=== PATIENT | female | born 1960 | race Two or more races ===

== ENCOUNTER 2020-07-19 05:36 | Emergency (ER) | payer OTHER ==
[~2020-07-19] VITALS: Ht 157.5 cm; Wt 72.1 kg
[2020-07-19 05:44] VITALS: BP 142/66
--- NOTE | 2020-07-19 05:50 | NUR ---
PT VERÓNICAA FROM HOME C/O ABD PAIN AND URINARY RETENTION SINCE YESTERDAY. PER PT SHE HAD URETHRAL RECONSTRUCTION AT [facility] LAST 07/12/20 AND ELIAS CATHETETER WAS DC'ED YESTERDAY. PT AAOX4, VSS, RESPIRATIONS EVEN AND UNLABORED ON RA W/ NAD NOTED. PT CONNECTED TO THE MONITOR AND POX
--- NOTE | 2020-07-19 06:24 | NUR ---
1600 URINE OUTPUT NOTED
[2020-07-19 06:30] LABS: BILIRUBIN,URINE NEGATIVE (NEGATIVE); BLOOD, URINE SMALL Ery/uL (NEGATIVE); COLOR,URINE YELLOW (YELLOW); LEUKOCYTE ESTERASE ,URINE NEGATIVE (NEGATIVE); NITRITE, URINE NEGATIVE (NEGATIVE); PROTEIN,URINE NEGATIVE (NEGATIVE); UGLUCOSE NEGATIVE (NEGATIVE); UROBILINOGEN,URINE 0.2 EU/dL (0.2)
--- NOTE | 2020-07-19 07:01 | NUR ---
Patient discharged to home in stable condition. Written and verbal after care instructions given. Patient verbalizes understanding of instruction.pt. ambulatory with a steady gait
[2020-07-19 07:35] LABS: BACTERIA,URINE Few /HPF (None Seen); WBC,URINE 0-2 /HPF (0-3)
[2020-07-19 07:36] LABS: SQUAMOUS EPITHELIAL CELL,UR Rare /HPF (None Seen)
== END 2020-07-19 07:01 | disposition home or self-care (01) ==
LOC: ER 05:36
DX: R33.9 Retention of urine, unspecified (principal); Z98.890 Other specified postprocedural states
CPT/HCPCS: 81000-TC